=== PATIENT | male | born 1965 | race Caucasian/White ===

== ENCOUNTER 2021-06-12 00:01 | Emergency (ER) | payer SELFPAY ==
[~2021-06-12] VITALS: Ht 172.7 cm; Wt 83.9 kg
--- NOTE | 2021-06-12 00:07 | NUR ---
pt bib ra and lapd because pt was calling 911. pt also has etoh and has been drinking.
--- NOTE | 2021-06-12 00:09 | NUR ---
jakob leon badmahesh [place] [id number] and shawna [id number] from unit [id number]
--- NOTE | 2021-06-12 00:13 | NUR ---
asked pt if he has any pain or any issues he says no and that he would like go home. I informed Dr. Velázquez.
[2021-06-12] MEDS ORDERED: KETAMINE HCL 500 MG/10 ML INJ ONE (00:29)
[2021-06-12] MEDS ORDERED: KETAMINE HCL 500 MG/10 ML INJ IM ONE (00:30)
--- NOTE | 2021-06-12 00:30 | NUR ---
pt with increasing agiation, pt yelling screaming and kicking, spitting at staff. Dr. Velázquez made aware, several nurses in room to assist with the pt. Dr. Velázquez at bedside he gave 200 mg of Ketamine Im to the pt.
[2021-06-12] MEDS ORDERED: IV NS 1000 ML 1,000 ML IV ONE (00:45)
[2021-06-12] MEDS ORDERED: FOLIC ACID 5 MG/ML VIAL IV ONE ×2 (00:45→01:35)
[2021-06-12] MEDS ORDERED: THIAMINE HCL 200 MG/2 ML VIAL IV ONE (00:45)
[2021-06-12 00:57] LABS: *BILIRUBIN,URIN NEGATIVE (NEGATIVE); *BLOOD, URINE NEGATIVE (NEGATIVE); *CLARITY,URINE CLEAR (CLEAR); *COLOR,URINE YELLOW (YELLOW); *KETONES,URINE NEGATIVE (NEGATIVE); *UROBILINOGEN,URINE 0.2 E.U./dl (NORMAL); LEUKOCYTE ESTERASE ,URINE NEGATIVE (NEGATIVE); NITRITE, URINE NEGATIVE (NEGATIVE); UGLUCOSE NEGATIVE (NEGATIVE)
[2021-06-12] MEDS ORDERED: LORAZEPAM 2 MG/1 ML VIAL ONE ×3 (01:00→01:53)
[2021-06-12] MEDS ORDERED: LORAZEPAM 2 MG/1 ML VIAL IV ONE ×3 (01:00→02:00)
--- NOTE | 2021-06-12 01:00 | NUR ---
pt remains with restlessness ativan was given.
[2021-06-12] MEDS ORDERED: HALOPERIDOL LACTATE 5 MG/1 ML VIAL ONE (01:09)
[2021-06-12] MEDS ORDERED: HALOPERIDOL LACTATE 5 MG/1 ML VIAL IM ONE (01:15)
--- NOTE | 2021-06-12 01:16 | NUR ---
Haldol given per orders for continued restlessness. pt was moved to room 1a.
[2021-06-12 01:19] LABS: *AMPHETAMINE, URINE NEGATIVE (NEGATIVE); *CANNABINOID, URINE NEGATIVE (NEGATIVE); *COCCAINE, URINE NEGATIVE (NEGATIVE); *OPIATE, URINE POSITIVE (NEGATIVE); *PHENCYCLIDINE SCREEN,URINE NEGATIVE (NEGATIVE)
[2021-06-12 01:20] LABS: HEMATOCRIT 45.2 % (36.7-47.1); MEAN CORPUSCULAR HEMOGLOBIN 31.3 uug (23.8-33.4); MEAN CORPUSCULAR VOLUME 91.2 fL (73.0-96.2); PLATELET COUNT (AUTO) 369 K/uL (152-348)
[2021-06-12 01:21] LABS: ALANINE AMINOTRANSFERASE 37 U/L (16-63); ALKALINE PHOSPHATASE 78 U/L (50-136); ASPARTATE AMINOTRANSFERASE 19 U/L (15-37); BILIRUBIN,DIRECT 0.1 mg/dL (0.0-0.2); BILIRUBIN,TOTAL 0.2 mg/dL (0.2-1.0); CARBON DIOXIDE 26 mmol/L (21-32); CHLORIDE 110 mmol/L (98-107); CREATINE KINASE, TOTAL 178 U/L (39-308); GLUCOSE 95 mg/dL (74-106); TOTAL PROTEIN, SERUM 7.1 g/dL (6.4-8.2); UREA NITROGEN, BLOOD 13 mg/dL (7-18)
[2021-06-12 01:26] LABS: ACETAMINOPHEN < 2.0 ug/mL (10-30)
[2021-06-12 01:27] LABS: ETHANOL 348 MG/DL (0-0)
[2021-06-12] MEDS ORDERED: MAGNESIUM SULFATE/D5W 100 ML ONE (01:33)
[2021-06-12] MEDS ORDERED: THIAMINE HCL 200 MG/2 ML VIAL ONE (01:42)
[2021-06-12] MEDS: MAGNESIUM SULFATE/D5W 100 ML IV SCH ×2 (01:44→02:10)
--- NOTE | 2021-06-12 02:18 | NUR ---
RESPIRATORY PROGRESS NOTE: CALLED TO ED FOR RT STANDBY ON PATIENT FOR CONSCIOUS SEDATION. PATIENT AGITATED AND COMBATIVE. PLACED PATEINT ON 5 L NASAL CANNULA. AMBUBAG AT BEDSIDE. POSSIBLE INTUBATION PER MD HORNE. EQUIPEMENT SETUP AND READY. RT AT STAND-BY x 1 HOUR.
--- NOTE | 2021-06-12 02:26 | NUR ---
Patient sleeping on gurny, VSS with no distress noted. Continue to monitor patient.
--- NOTE | 2021-06-12 04:13 | NUR ---
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
[2021-06-12] MEDS ORDERED: TRAZ-182 PO (04:21)
--- NOTE | 2021-06-12 04:21 | NUR ---
Jesica Avalos WILDLIFE ENFORCEMENT MAJOR called back and is speaking with Dr. Velázquez.
[2021-06-12] MEDS ORDERED: IV NS 1000 ML 1,000 ML IV PRN (04:30)
[2021-06-12] MEDS ORDERED: ONDANSETRON 4 MG/2 ML VIAL IV PRN (04:30)
[2021-06-12] MEDS ORDERED: REMEDY ESSENTIAL ZINC PASTE 113 GM TP PRN (04:30)
[2021-06-12] MEDS ORDERED: THIAMINE HCL INJ 100 MG in IV DEXTROSE 5% 50 ML IV SCH (04:30)
[2021-06-12] MEDS ORDERED: ACETAMINOPHEN 325 MG TABLET PO PRN (04:30)
[2021-06-12] MEDS ORDERED: MAGNESIUM HYDROXIDE 30 ML LIQUID UDC PO PRN (04:30)
[2021-06-12] MEDS ORDERED: LORAZEPAM 2 MG/1 ML VIAL IV PRN (04:30)
--- NOTE | 2021-06-12 04:35 | NUR ---
pt to go to room 317, I was told by third floor that pt will have to go after day shfit. I called the warehouse delivery driver she states as well the pt must go on day shift.
--- NOTE | 2021-06-12 06:52 | NUR ---
Dr. Leonard spoke with Jesica Avalos pt will not be admitted and will be discharged home.
--- NOTE | 2021-06-12 07:09 | NUR ---
report to Angelica BASHIR, pt to go home.
--- NOTE | 2021-06-12 07:23 | NUR ---
IV removed. Catheter intact and site benign. Pressure and 4x4 gauze applied to site. No bleeding noted.
--- NOTE | 2021-06-12 07:27 | NUR ---
Received hand off report from Trino BASHIR. patient is awake, alert, oriented x4 with no complaints. he ambulated to BR with steady gait. IV DC'd by other RN. Patient states he is "ready to leave". DC and follow up instructions given and explained to patient who states he understands all isntructions
[2021-06-12] MEDS ORDERED: TRAZODONE 50 MG TABLET PO SCH (09:00)
[2021-06-12] MEDS ORDERED: PANTOPRAZOLE SODIUM 40 MG VIAL IV SCH (09:00)
[2021-06-12] MEDS ORDERED: CHLORDIAZEPOXIDE HCL 25 MG CAPSULE PO SCH (09:00)
== END 2021-06-12 07:29 | disposition home or self-care (01) ==
LOC: ER 00:30
DX: G93.41 Metabolic encephalopathy (principal); R00.0 Tachycardia, unspecified; F10.20 Alcohol dependence, uncomplicated; Y90.8 Blood alcohol level of 240 mg/100 ml or more; Z20.822 Contact with and (suspected) exposure to COVID-19
CPT/HCPCS: 36415; 80048; 80076; 80299; 80307; 80320; 81003; 82550 ×2; 85025; 87426; 93005; 96365; 96366; 96368; 96372; 96375; 99285; J1630; J2060 ×3; J3411; J3475 ×2; J3490 ×2; J7040; A4663; G0480